=== PATIENT | female | born 1955 | race Caucasian/White ===

== ENCOUNTER 2024-11-27 11:19 | Outpatient (CLI) | payer MEDICARE, SELFPAY ==
--- NOTE | ~2024-11-27 | CT_ITS ---
EXAMINATION: CT sinus wo con DATE: 11/27/2024 11:36 INDICATION: Chronic sinusitis TECHNIQUE: Computed tomography (CT) of the paranasal sinuses was performed without intravenous contra st. The dose-length product was 309.20 mGy-cm. Automated exposure control and iterative reconstructio n technique were employed. COMPARISON: None FINDINGS: There is a small mucous retention cyst of the right maxillary sinus. No significant mucosal thickening. Minimal mucoperiosteal reaction. Mastoids are pneumatized. There is a left-sided loi bullosa. Ostiomeatal units are patent. IMPRESSION: 1. Mucus retention cyst right maxillary antrum measuring approximately 12 mm. Reviewed, dictated and finalized at location A.
== END 2024-11-27 11:20 | disposition home or self-care (01) ==
LOC: MICIMG 11:23
DX: J34.1 Cyst and mucocele of nose and nasal sinus (principal); R05.3 Chronic cough; J31.0 Chronic rhinitis; J32.9 Chronic sinusitis, unspecified
CPT/HCPCS: 70486